=== PATIENT | female | born 1995 | race Two or more races ===

== ENCOUNTER → 2024-11-20 | Emergency (ER) | payer OTHER ==
[~2024-11-20] VITALS: Ht 165.1 cm; Wt 68.0 kg
[~2024-11-20] MED LIST: DOLOGESIC CAPLE1 TAB PO; ESCITALOPRAM OX10 MG PO; TRAZODONE HCL50 MG PO
== END | disposition home or self-care (01) ==
LOC: ER 17:07
DX: N76.0 Acute vaginitis (principal); Z88.8 Allergy status to other drugs, medicaments and biological substances